=== PATIENT | male | born 1985 | race Caucasian/White ===

== ENCOUNTER 2021-12-17 13:52 | Emergency (ER) | payer BC ==
[2021-12-17 16:15] LABS: C. TRACHOMATIS BY PCR NOT DETECTED; N. GONORRHOEAE BY PCR NOT DETECTED
== END 2021-12-17 17:30 | disposition home or self-care (01) ==
LOC: JD.ED 13:52
DX: N50.811 Right testicular pain (principal)
CPT/HCPCS: 36415; 76870; 76870-26; 80053; 81001; 85025; 87491; 87591; 93975; 99284

== ENCOUNTER 2024-05-23 15:40 | Emergency (ER) | payer BC, OTHER ==
[2024-05-23] MEDS: cefTRIAXone 1 GM, Lidocaine 1% 2.1 ML IM ONE (18:17)
== END 2024-05-23 18:27 | disposition home or self-care (01) ==
LOC: JD.ED 15:40
DX: K04.7 Periapical abscess without sinus (principal); Z90.89 Acquired absence of other organs; Z79.899 Other long term (current) drug therapy
CPT/HCPCS: 96372; 99282; J0696; J3490